=== PATIENT | male | born 1945 | race Caucasian/White ===

== ENCOUNTER 2018-04-13 10:40 | Day surgery (SDC) | payer MEDICARE, OTHER ==
[~2018-04-13] VITALS: Ht 170.2 cm; Wt 76.2 kg
[~2018-04-13 10:40] MED LIST: ADULT LOW DOSE81 MG PO; ASPIRIN EC81 MG PO; CARVEDILOL3.125 MG PO; CORAL CALCIUM390 MG PO; K-PHOS NEUTRAL250 MG PO; LACTULOSE10 GM/15 M PO; LIPITOR10 MG PO; LISINOPRIL2.5 MG PO; PLAVIX75 MG PO; PREDNISONE20 MG PO; PROPRANOLOL HCL10 MG PO; REBETOL200 MG PO; SLOW-MAG71.5 MG PO; SOVALDI400 MG PO; SPIRONOLACTONE25 MG PO; SPIRONOLACTONE50 MG PO; TORSEMIDE10 MG PO; TORSEMIDE20 MG PO; VITAMIN D1000 UNIT PO; VITAMIN D31000 UNIT PO
--- NOTE | 2018-04-13 12:43 | NUR ---
04/13/18 1243 [address] [place] 1232 BONE MARROW BX COMPLETE, PT LAYING IN A PRONE POSITION WITH HEAD TO LEFT. BREATHING EVEN AND NON LABORED. 3L O2 PER NC, SATS 100%. BANDAID TO LEFT POSTERIOR HIP, NO DRAINAGE.
[2018-04-27] MEDS ORDERED: VITAMIN B122500 MCG PO (10:39)
== END 2018-04-13 18:00 | disposition home or self-care (01) ==
LOC: DS 10:40 → OPS 10:40 → DS 12:00
PROVIDERS: Specialist
PROC: 079T3ZX Drainage of Bone Marrow, Percutaneous Approach, Diagnostic (ICD-10-PCS; 2018-04-13)
PROC: 07DR3ZX Extraction of Iliac Bone Marrow, Percutaneous Approach, Diagnostic (ICD-10-PCS; principal; 2018-04-13 12:00)
DX: D59.1 Other autoimmune hemolytic anemias (principal); D69.6 Thrombocytopenia, unspecified; D75.89 Other specified diseases of blood and blood-forming organs; D64.9 Anemia, unspecified; B18.2 Chronic viral hepatitis C; K74.60 Unspecified cirrhosis of liver; Z79.899 Other long term (current) drug therapy
CPT/HCPCS: 80053; 83615; 84155; 84165; 85025; 86038; 86157; 86703; 86704; 86706; 87340; 87521; 87522; 88184; 88185; 88305; 88311; 88313; 88341; 88342; 88360; 88364; 88365; 99152; J2250; J3010; J7120

== ENCOUNTER 2020-05-16 12:55 | Emergency (ER) | payer MEDICARE, OTHER ==
[~2020-05-16] VITALS: Ht 170.2 cm; Wt 71.7 kg
[~2020-05-16 12:55] MED LIST changes: +CIPRO500 MG PO; +FOLIC ACID1 MG PO; +VITAMIN B122500 MCG PO
--- OUTSIDE RECORDS SUMMARY | 2020-05-16 12:58 | XMS ---
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 EJaycee VISIT COUNT (12 MO.) 1 DENI [place] TOTAL 1 NOTE: Visits indicate total known visits. ED/UCC VISIT TRACKING (12 MO.) 05/16/2020 12:56 [facility]I [facility] [place] TYPE: Emergency COMPLAINT: - RECTAL BLEEDING INPATIENT VISIT TRACKING (12 MO.) No inpatient visits to display in this time frame [email or web address]
[2020-05-16] MEDS ORDERED: VIRT-PHOS 250250 MG PO (13:22)
== END 2020-05-16 15:05 | disposition home or self-care (01) ==
LOC: ED 12:55
DX: K64.4 Residual hemorrhoidal skin tags (principal); Z87.891 Personal history of nicotine dependence; Z88.8 Allergy status to other drugs, medicaments and biological substances; Z79.899 Other long term (current) drug therapy; Z79.82 Long term (current) use of aspirin
CPT/HCPCS: 80048; 85025; 99283

== ENCOUNTER 2023-07-01 16:39 | Emergency (ER) | payer MEDICARE, OTHER ==
[~2023-07-01] VITALS: Ht 170.2 cm; Wt 68.0 kg
[~2023-07-01 16:39] MED LIST changes: +VIRT-PHOS 250250 MG PO
--- OUTSIDE RECORDS SUMMARY | 2023-07-01 16:42 | XMS ---
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 EJaycee VISIT COUNT (12 MO.) [address] TOTAL 3 NOTE: Visits indicate total known visits. ED/UCC VISIT TRACKING (12 MO.) 07/01/2023 16:40 [facility] [place] TYPE: Emergency COMPLAINT: - ABDOMINAL PAIN 06/17/2023 11:04 [facility] TYPE: Emergency DIAGNOSES: - Dizziness and giddiness - DIZZY DOUBLE VISION 06/16/2023 16:04 [facility] [place] TYPE: Emergency DIAGNOSES: - Dizziness and giddiness - Chest Pain INPATIENT VISIT TRACKING (12 MO.) No inpatient visits to display in this time frame [email or web address]
[2023-07-01] MEDS ORDERED: SODIUM CHLORIDE 0.9% 1,000 ML IV ONE (17:00)
[2023-07-01 17:24] LABS: BASOPHILS 0.9 % (0-2); EOSINOPHILS 8.1 % (0-6); HEMATOCRIT 39.4 % (35.0-50.0); HEMOGLOBIN 13.3 g/dL (12.0-18.0); LYMPHOCYTES 29.5 % (24-44); MCH 37.1 (27-36); MCHC 33.8 g/dl (30-36); MCV 109.8 fl (81-99); MONOCYTES 16.6 % (0-12); NEUTROPHILS 44.9 % (39-80); PLATELET COUNT 105 K/uL (140-440); RBC 3.59 M/ul (4.3-5.7)
[2023-07-01 17:40] LABS: ALBUMIN 2.6 g/dL (3.4-5.0); ALBUMIN/GLOBULIN RATIO 0.68 (1.1-2.4); BILIRUBIN, TOTAL 1.1 ng/dL (0.2-1.0); BUN/CREATININE RATIO 17.58 (6.0-28.6); CALCIUM 8.6 mg/dL (8.5-10.1); CREATININE, SERUM 0.91 mg/dL (0.70-1.30); PROTEIN, TOTAL 6.4 g/dL (6.4-8.2)
[2023-07-01 18:26] LABS: BILIRUBIN, URINE NEGATIVE (negative); BLOOD/HGB, URINE NEGATIVE (Negative); KETONE, URINE NEGATIVE (Negative); LEUK ESTERASE, URINE NEGATIVE (negative); NITRITE, URINE NEGATIVE (negative); PH, URINE 5.5 (5-7)
[2023-07-01] MEDS ORDERED: MELOXICAM15 MG PO (19:17)
[2023-07-01] MEDS ORDERED: METHOCARBAMOL750 MG PO (19:17)
--- NOTE | 2023-07-01 19:23 | EKG ---
[facility] [address] [facility] [place], [place] [address] Signed Sinus bradycardia with 1st degree AV block Possible Anterior infarct , age undetermined Abnormal ECG No previous ECGs available Confirmed by Lizz Story ([id number]) on 07/01/2023 7:23:18 PM Electronically Signed By: LIZZ STORY MD 07/01/231922 PATIENT NAME: GUILLAUME NICKERSON Electrocardiogram DATE OF : 41 PHYSICIAN: LIZZ STORY MD REPORT #: [id number] REPORT IS CONFIDENTIAL AND NOT TO BE RELEASED WITHOUT AUTHORIZATION
[2023-07-01] MEDS ORDERED: ACETAMINOPHEN 500 MG TAB PO ONE (19:45)
[2023-07-01 19:56] VITALS: BP 139/67
== END 2023-07-01 19:57 | disposition home or self-care (01) ==
LOC: ED 16:39
PROVIDERS: Emergency Medicine
DX: R07.89 Other chest pain (principal); I25.2 Old myocardial infarction; Z87.891 Personal history of nicotine dependence; Z88.8 Allergy status to other drugs, medicaments and biological substances; Z79.899 Other long term (current) drug therapy; Z79.82 Long term (current) use of aspirin
CPT/HCPCS: 36415; 71260; 80053; 81003; 83605; 84484; 85025; 93005; 93010; 99285-25; A9270; J7030; Q9967

== ENCOUNTER 2023-10-14 13:31 | Inpatient (IN) | payer MEDICARE, OTHER ==
[~2023-10-14] VITALS: Ht 170.2 cm; Wt 63.3 kg
[~2023-10-14 13:31] MED LIST changes: +MELOXICAM15 MG PO; +METHOCARBAMOL750 MG PO; +PHOSPHA 250 NE250 MG PO; -VIRT-PHOS 250250 MG PO; -VITAMIN D1000 UNIT PO; +VITAMIN D325 MCG PO
[2023-10-14] MEDS ORDERED: B COMPLEX1 EACH PO (14:38)
[2023-10-14] MEDS ORDERED: CALCIUM-MAG-ZI1 EAC2 PO (14:38)
[2023-10-14 14:51] LABS: INR 1.33 (0.80-1.30); PROTIME 15.7 Sec (11.2-14.2)
[2023-10-14 14:56] LABS: ALBUMIN 2.6 g/dL (3.4-5.0); ALBUMIN/GLOBULIN RATIO 0.7 (1.1-2.4); ANION GAP 11.2 (7-21); BILIRUBIN, TOTAL 1.4 ng/dL (0.2-1.0); BUN/CREATININE RATIO 13.97 (6.0-28.6); CALCIUM 8.2 mg/dL (8.5-10.1); CREATININE, SERUM 0.93 mg/dL (0.70-1.30); POTASSIUM 4.2 mmol/L (3.5-5.1); PROTEIN, TOTAL 6.3 g/dL (6.4-8.2)
[2023-10-14 14:59] LABS: BASOPHILS 0.8 % (0-2); RBC 3.65 M/ul (4.3-5.7)
[2023-10-14] MEDS ORDERED: SODIUM CHLORIDE 0.9% 1,000 ML IV SCH ×2 (15:00→17:00)
[2023-10-14] MEDS ORDERED: SODIUM CHLORIDE 0.9% 1,000 ML IV PRN (15:00)
[2023-10-14 15:02] LABS: EOSINOPHILS 7.5 % (0-6); HEMATOCRIT 39.5 % (35.0-50.0); HEMOGLOBIN 13.6 g/dL (12.0-18.0); LYMPHOCYTES 24.8 % (24-44); MCH 37.2 (27-36); MCHC 34.4 g/dl (30-36); MCV 108.2 fl (81-99); MONOCYTES 13.6 % (0-12); NEUTROPHILS 53.3 % (39-80); PLATELET COUNT 98 K/uL (140-440); RDW 14.6 (10.5-15.0)
[2023-10-14 16:08] LABS: BILIRUBIN, URINE NEGATIVE (negative); BLOOD/HGB, URINE NEGATIVE (Negative); KETONE, URINE NEGATIVE (Negative); LEUK ESTERASE, URINE NEGATIVE (negative); NITRITE, URINE NEGATIVE (negative)
[2023-10-14 16:14] LABS: BACTERIA, URINE 2+ /hpf (negative); CASTS, URINE NONE SEEN \\lpf; COLLECTION TYPE, URINE CLEAN CATCH; CRYSTALS, URINE NONE SEEN (0-1+); EPITHELIAL CELLS, URINE 0 /lpf (0-1+); RED BLOOD CELLS, URINE 0-1 /hpf (0-5); REFLEX CULTURE, URINE Yes (No)
[2023-10-14] MEDS ORDERED: ondansetron HCL 4 MG/2 ML VIAL IV PRN (17:00)
--- NOTE | 2023-10-14 17:37 | NUR ---
PT ARRIVED TO MED SURG FLOOR VIA STRETCHER. REPORT RECEIVED FROM AINSLEY HAY. LEONARDO AT BEDSIDE. ASSESSMENT COMPLETED, AT BEDSIDE TO HELP ANSWER QUESTIONS. IV FLUIDS STARTED, TELE APPLIED. PT SITTING UP IN BED EATING JELLO AND BROTH. PT TOLERATING WELL. THIS RN IN ROOM DOING ASSESSMENT UNTIL 1900. WHEN LEAVING ROOM CALL LIGHT AND WATER WITHIN REACH. PT. DENIES ANY OTHER NEEDS.
[2023-10-14 17:44] VITALS: BP 153/77
--- NOTE | 2023-10-14 19:10 | NUR ---
REPORT RECIEVED FROM ALYSIA SCHMITZ. pt RESTING IN THE BED. BOARD UPDATED. NO NEEDS AT THIS TIME. CALL LIGHT WITHIN REACH.
[2023-10-14 20:24] VITALS: BP 137/57
--- NOTE | 2023-10-14 20:26 | NUR ---
CIRCUIT TESTER OBTAINED VITALS AND INTAKE. NO NEW OUTPUT NOTED. PT STATES NO FURTHER NEEDS AT THIS TIME. CALL LIGHT WITHIN REACH.
--- NOTE | 2023-10-14 21:16 | NUR ---
PATIENT WITH COMPLAINTS OF COLD HANDS. TWO WARM BLANKETS PROVIDED AND PLACED ON PATIENTS HANDS/ARMS. TEMP IN ROOM TURNED UP. BED ALARM ON FOR SAFETY. PATIENT DENIES FURTHER NEEDS. CALL LIGHT IN REACH.
[2023-10-14 21:17] VITALS: BP 137/57
--- NOTE | 2023-10-14 21:30 | NUR ---
ASSESSMENT AND VITAL SIGNS DONE. pt A&O X4. SCHEDULED MEDICATIONS ADMINISTERED, SEE MAR. IV ASSESSED, WNL. IVF INFUSING PER ORDER, SEE MAR. pt STOOD AT BED SIDE TO USE URINAL, 1PA. NEW BRIEF PLACED. pt DENIES ANY OTHER NEEDS AT THIS TIME. CALL LIGHT WITHIN REACH.
[2023-10-14] MEDS ORDERED: LACTULOSE 20 GM/30 ML CUP PO SCH (22:00)
[2023-10-15] VITALS (9 sets, daily range): BP systolic 126–169; BP diastolic 55–74
--- NOTE | 2023-10-15 00:10 | NUR ---
pt RESTING IN THE BED. pt CALLED OUT WANTING OT KNOW WHERE HIS CALL LIGHT WAS AT. CALL LIGHT FOUND UNDER pt ARM. pt DENIES ANY OTHER NEEDS AT THIS TIME. CALL LIGHT WITHIN REACH.
--- NOTE | 2023-10-15 01:45 | NUR ---
CAN AND RN OBTIANED VITALS AND I&O. PT STATES NO FURTHER NEEDS AT THIS TIME. CALL LIGHT WITHIN REACH.
--- NOTE | 2023-10-15 03:44 | NUR ---
pt UP TO THE BSC. pt WILL CALL WHEN HE IS READY TO GO BACK TO BED. NO OTHER NEEDS AT THIS TIME. CALL LIGHT WITHIN REACH.
--- NOTE | 2023-10-15 03:58 | NUR ---
pt CALLED TO GO BACK TO BED. 1PA TO BED. pt DENIES ANY OTHER NEEDS AT THIS TIME. CALL LIGHT WITHIN REACH.
--- NOTE | 2023-10-15 06:32 | NUR ---
ASSESSMENT DONE. SCHEDULED MEDICATION ADMINISTERED. pt A&O X4. pt DENIES ANY OTHER NEEDS AT THIS TIME. CALL LIGHT WITHIN REACH.
--- NOTE | 2023-10-15 07:56 | NUR ---
recieved report from nurse at 0716. pt is currently awake and asked to use the urinal at bedside commode. software packager assisted pt. no other cares needed or requested at this time call light within reach
--- NOTE | 2023-10-15 08:04 | NUR ---
PATIENT IN BED AT THIS TIME. HOUSE DIRECTOR ASSISTED PATIENT IN USING THE URINAL. HOUSE DIRECTOR RECORDED VOIDINGS ON CHART IN ROOM. CALL LIGHT WITHIN REACH, NO FURTHER NEEDS AT THIS TIME.
--- NOTE | 2023-10-15 08:24 | NUR ---
med rec complete.
[2023-10-15 08:45] LABS: BASOPHILS 0.7 % (0-2); EOSINOPHILS 11.2 % (0-6); HEMATOCRIT 37.9 % (35.0-50.0); HEMOGLOBIN 13.4 g/dL (12.0-18.0); LYMPHOCYTES 26.4 % (24-44); MCH 38.1 (27-36); MCHC 35.3 g/dl (30-36); MONOCYTES 14.5 % (0-12); NEUTROPHILS 47.2 % (39-80); PLATELET COUNT 102 K/uL (140-440); RBC 3.51 M/ul (4.3-5.7); RDW 15.3 (10.5-15.0)
[2023-10-15 09:01] LABS: ALBUMIN 2.6 g/dL (3.4-5.0); ALBUMIN/GLOBULIN RATIO 0.72 (1.1-2.4); ANION GAP 10.9 (7-21); BILIRUBIN, TOTAL 1.8 ng/dL (0.2-1.0); BUN/CREATININE RATIO 8.16 (6.0-28.6); CALCIUM 8.2 mg/dL (8.5-10.1); CREATININE, SERUM 0.98 mg/dL (0.70-1.30); POTASSIUM 3.9 mmol/L (3.5-5.1); PROTEIN, TOTAL 6.2 g/dL (6.4-8.2)
[2023-10-15] MEDS ORDERED: Rifaximin 200 MG TAB PO SCH (11:31)
[2023-10-15] MEDS ORDERED: PHARMACY RENAL DOSE ADJUSTMENT 1 DOSE MISC PO SCH (12:00)
[2023-10-15] MEDS ORDERED: VITAMIN B-121000 MCG PO (12:28)
[2023-10-15] MEDS ORDERED: MAGOX 400400 MG PO (12:29)
[2023-10-15] MEDS ORDERED: MULTI VITAMIN1 EACH PO (12:29)
[2023-10-15] MEDS ORDERED: GLUTATHIONE IV (12:30)
[2023-10-15] MEDS ORDERED: [UNRECOGNIZED DRUG - OTHER] IV (12:31)
[2023-10-15] MEDS ORDERED: ASCORBIC ACID IV (12:31)
--- NOTE | 2023-10-15 12:31 | NUR ---
MED REC COMPLETE
[2023-10-15] MEDS ORDERED: LACTULOSE 20 GM/30 ML CUP PO SCH (13:00)
--- NOTE | 2023-10-15 18:29 | NUR ---
PT HAS BEEN USING THE BEDSIDE COMMODE SEVERAL TIMES TODAY WITH SEVERAL LARGE SOFT LIQUID BOWEL MOVEMENTS. PT RECOMMENDED PT TO BE ON A 60G CARB DIET. PT IS CURRENTLY IN BED RESTING AND HOPING TO GO FOR A WALK LATER AROUND TRHE UNIT. NO CONCERNS AT THIS TIME. NO CARES NEEDED OR REQUESTED AT THIS TIME CALL LIGHT WITHIN REACH
--- NOTE | 2023-10-15 19:15 | NUR ---
REPORT RECEIVED FROM LUIS SCHMITZ. pt RESTING IN THE BED. BOARD UPDATED. NO OTHER NEEDS AT THIS TIME. CALL LIGHT WITHIN REACH.
--- NOTE | 2023-10-15 19:42 | NUR ---
CALL LIGHT ANSWERED. PT NEEDED TO VOID. VESSEL BUILDER ASSISTED PT TO STAND AT BEDSIDE AND USE URINAL. OUTPUT MEASURED AND URINAL EMPTIED. PT ASSISTED BACK TO BED. PT STATES NO FURTHER NEEDS AT THIS TIME. CALL LIGHT WITHIN REACH.
--- NOTE | 2023-10-15 20:22 | NUR ---
CFO CONTROLLER OBTAINED VITALS AND I&O. PT STATES NO NEEDS AT THIS TIME. CALL LIGHT WITHIN REACH.
--- NOTE | 2023-10-15 20:50 | NUR ---
ASSESSMENT DONE. pt A&O X4. SCHEDULED MEDICATION ADMINISTERED, SEE MAY. IV ASSESSED WNL. WATER REFRESHED. SBA WITH FWW. pt UP TO WALK 2 LAPS IN THE ENGEL WITH THIS RN AND INTERRELATED SPECIAL EDUCATION TEACHER. pt DENIES ANY DIZZINESS. pt BACK TO BED. pt DENIES ANY OTHER NEEDS A THIS TIME. CALL LIGHT WITHIN REACH.
--- NOTE | 2023-10-15 21:08 | NUR ---
PT WANTED TO WALK AROUND THE HALLWAYS. BILLING MANAGER AND PRIMARY RN GOT PT A WALKER. BILLING MANAGER SBA WITH FWW AND RN FOLLOWED BEHIND PT WITH WHEEL CHAIR. PT AMBULATED 2 LAPS AROUND UNIT. PT GAIT STEADY. PT BACK IN BED WITH CALL LIGHT WITHIN REACH.
--- NOTE | 2023-10-15 22:38 | NUR ---
CALL LIGHT ANSWERED. PT NEEDED TO USE BSC. MERCHANDISING TEAM LEAD 1PA PIVOT TO BSC. PT HAD SMALL BM AND VOIDED. PT ASSISTED WITH WIPING AND GIVEN NEW BREIF. PT ASSISTED BACK TO BED. OUTPUT NOTED. PT STATES NO FURTHER NEEDS AT THIS TIME. CALL LIGHT WITHIN REACH.
--- NOTE | 2023-10-16 00:09 | NUR ---
pt RESTING IN THE BED WITH EYES CLOSED. RR EVEN AND UNLABORED. CALL LIGHT WITHIN REACH.
[2023-10-16 00:59] VITALS: BP 143/61
[2023-10-16 01:04] VITALS: BP 143/61
--- NOTE | 2023-10-16 01:28 | NUR ---
PT called to use the urinal at bed side. vital signs done. PT back to bed. no other needs at this time. call light within reach.
--- NOTE | 2023-10-16 04:07 | NUR ---
pt RESTING IN THE BED WITH EYES CLOSED. RR EVEN AND UNLABORED. CALL LIGHT WITHIN REACH.
[2023-10-16 05:02] VITALS: BP 142/46
--- NOTE | 2023-10-16 05:05 | NUR ---
ANAESTHETIC TECHNICIAN OBTAINED VITALS AND I&O. PT STATES NO FURTHER NEEDS AT THIS TIME. CALL LIGHT WITHIN REACH.
--- NOTE | 2023-10-16 05:17 | NUR ---
PT rested throughout the night. SBA with FWW. PT alert and orientated.
--- NOTE | 2023-10-16 07:25 | NUR ---
RECEIVED REPORT FROM AINSLEY OWENS. PT RESTING IN BED WITH EYES CLOSED, BREATHING EVEN AND UNLABORED. CALL LIGHT WITHIN REACH.
--- NOTE | 2023-10-16 08:15 | NUR ---
PATIENT IN BED AT THIS TIME. OPERATIONS OFFICER AFLOAT ASSISTED PATIENT TO COMMODE, OPERATIONS OFFICER AFLOAT RECORDED PATIENTS VOIDINGS ON CHART IN ROOM. CALL LIGHT WITHIN REACH, NO FURTHER NEEDS AT THIS TIME.
[2023-10-16] MEDS ORDERED: DICYCLOMINE HCL 10 MG CAP PO PRN (08:30)
--- NOTE | 2023-10-16 08:40 | NUR ---
PT AWAKE IN BED EATING BREAKFAST. PT STATES HE IS HAVING 6/[address] CASTILLO NOTIFIED, NEW ORDERS ENTERED, MEDICATION FOR PAIN GIVEN. PT UP TO BSC WHILE THIS RN IN ROOM WITH 1PA. BOWEL TONES ACTIVE, ABD SOFT, NON-TENDER TO PALPATION. PT REMAINS ON TELE. PT STATES NO PAIN IN OTHER AREAS, DENIES SOB OR NAUSEA. PT AT THE BEDSIDE. PT STATES NO FURTHER NEEDS AT THIS TIME.
--- NOTE | 2023-10-16 09:32 | NUR ---
PT UP WALKING HALLWAY WITH PHYSICAL THERAPY.
[2023-10-16 09:40] LABS: ALBUMIN 2.8 g/dL (3.4-5.0); ALBUMIN/GLOBULIN RATIO 0.74 (1.1-2.4); ANION GAP 10.6 (7-21); BILIRUBIN, TOTAL 1.8 ng/dL (0.2-1.0); BUN/CREATININE RATIO 11.82 (6.0-28.6); CALCIUM 8.3 mg/dL (8.5-10.1); CREATININE, SERUM 0.93 mg/dL (0.70-1.30); POTASSIUM 3.6 mmol/L (3.5-5.1); PROTEIN, TOTAL 6.6 g/dL (6.4-8.2)
[2023-10-16] MEDS ORDERED: LACTULOSE10 GM/15 M PO (09:42)
--- NOTE | 2023-10-16 10:22 | NUR ---
PATIENT IN BED AT THIS TIME. COOLING TOWER OPERATOR ASSISTED PATIENT IN GETTING TO THE COMMODE, COOLING TOWER OPERATOR CHARTED VOIDINGS IN ROOM. CALL LIGHT WITHIN REACH, NO FURTHER NEEDS AT THIS TIME.
--- NOTE | 2023-10-16 10:44 | EKG ---
[facility] [address] [facility] [place], [place] [address] Signed Sinus bradycardia with occasional premature ventricular complexes Left axis deviation Abnormal ECG No previous ECGs available Confirmed by Navin Castillo MD ([id number]) on 10/16/2023 10:43:56 AM Electronically Signed By: NAVIN CASTILLO 10/16/23 1044 PATIENT NAME: KRISHANGUILLAUME JEWEL Electrocardiogram DATE OF : 41 PHYSICIAN: NAVIN CASTILLO REPORT #: [id number] REPORT IS CONFIDENTIAL AND NOT TO BE RELEASED WITHOUT AUTHORIZATION
--- NOTE | 2023-10-16 11:10 | NUR ---
PT RESTING IN BED WITH EYES CLOSED, RESPIRATIONS EVEN AND UNLABORED. CALL LIGHT WITHIN REACH, AT THE BEDSIDE.
--- NOTE | 2023-10-16 12:15 | NUR ---
PT UP TO SHOWER WITH END FRAZER. STATES NO NEEDS AT THIS TIME, CALL LIGHT WITHIN REACH.
== END 2023-10-16 13:08 | disposition home or self-care (01) | DRG 442 ==
LOC: ED 13:31 → MS 13:33
PROVIDERS: Emergency Medicine; ADMIT Internal Medicine; ATTEND Internal Medicine
DX: K76.82 Hepatic encephalopathy (principal); E72.20 Disorder of urea cycle metabolism, unspecified; K74.60 Unspecified cirrhosis of liver; B19.20 Unspecified viral hepatitis C without hepatic coma; D69.6 Thrombocytopenia, unspecified; N18.9 Chronic kidney disease, unspecified; I50.9 Heart failure, unspecified; E80.6 Other disorders of bilirubin metabolism; Z91.148 Patient's other noncompliance with medication regimen for other reason; Z87.891 Personal history of nicotine dependence; Z95.5 Presence of coronary angioplasty implant and graft; Z98.890 Other specified postprocedural states; Z88.8 Allergy status to other drugs, medicaments and biological substances; Z79.899 Other long term (current) drug therapy; Z79.82 Long term (current) use of aspirin
CPT/HCPCS: 36415; 70450; 71045; 80053; 81001; 82140; 83690; 85025; 85610; 87077; 87088; 93005; 93010; 96360; 97161; 97530; 99285-25; G0378; J7030